=== PATIENT | female | born 1995 | race Caucasian/White ===

== ENCOUNTER 2019-01-15 07:22 | Inpatient (IN) | payer BC ==
[~2019-01-15 07:22] MED LIST: Buffered Lidocaine 1% SYRIN* 1 ML/SYRINGE INTRADERM ONE; Dexamethasone IV* 4 MG/ML 1 ML (4 MG) IV SLOW PU ONE; Famotidine IV* 10 MG/ML 2 ML (20 mg) IV ONE; Lactated Ringers 1000 ML Bag* 1,000 ML IV SCH
[2019-01-15] MEDS ORDERED: Heparin VIAL(*) 5000 UNITS/ML VIAL (FIVE THOUSAND) ONE (07:46)
[2019-01-15] MEDS ORDERED: Clindamycin 900 MG IVPREMIX(* 900 MG/50 ML SDV IV ONE (07:46)
[2019-01-15] MEDS ORDERED: Dexamethasone IV* 4 MG/ML 1 ML (4 MG) ONE (07:46)
[2019-01-15] MEDS ORDERED: Famotidine IV* 10 MG/ML 2 ML (20 mg) ONE (07:46)
[2019-01-15] MEDS ORDERED: fentaNYL* 50 MCG/ML 5 ML VIAL (250 MCG VIAL) ONE (08:17)
[2019-01-15] MEDS ORDERED: Midazolam* 1 MG/ML 5 ML VIAL (5 MG) ONE (08:17)
[2019-01-15] MEDS ORDERED: Ondansetron INJ* 2 MG/ML VIAL ONE (08:18)
[2019-01-15] MEDS ORDERED: Ketorolac INJ* 30 MG/ML 1 ML VIAL ONE (08:18)
[2019-01-15] MEDS ORDERED: Lidocaine 2% PF * 5 ML VIAL ONE (08:18)
[2019-01-15] MEDS ORDERED: Propofol* 10 MG/ML 20 ML BTL ONE (08:18)
[2019-01-15] MEDS ORDERED: Methylene Blue 0.5 %* 50 MG/10 ML AMP IV ONE (08:44)
[2019-01-15] MEDS ORDERED: Bupivacaine 0.25% SDV PF* 10 ML VIAL INJ ONE (08:45)
[2019-01-15] MEDS ORDERED: Bupivacaine 0.25% EPI 200,000* 30 ML SDV ONE ×2 (09:14→09:44)
[2019-01-15] MEDS ORDERED: Glycopyrrolate IV* 0.2 MG/ML 1 ML VIAL ONE (09:35)
[2019-01-15] MEDS ORDERED: fentaNYL* 50 MCG/ML 2 ML VIAL (100 MCG VIAL) ONE ×4 (09:45→14:00)
[2019-01-15] MEDS ORDERED: Rocuronium* 10 MG/ML VIAL ONE (09:49)
[2019-01-15] MEDS ORDERED: Metoprolol Tartrate IV* 1 MG/ML 5 ML VIAL ONE (10:00)
[2019-01-15] MEDS ORDERED: Naloxone* 0.4 MG/ML 1 ML VIAL IV PRN (10:34)
[2019-01-15] MEDS ORDERED: DiMENhydriNATE IV* 50 MG/ML VIAL IV PUSH PRN (10:34)
[2019-01-15] MEDS ORDERED: HYDROmorphone INJ1* 1 MG/ML SYRINGE IV PRN (10:34)
[2019-01-15] MEDS ORDERED: Scopolamine 1.5 mg* PATCH TRANSDERM PRN (10:34)
[2019-01-15] MEDS ORDERED: Ondansetron INJ* 2 MG/ML VIAL IV PRN ×2 (10:34→12:39)
[2019-01-15] MEDS ORDERED: Triamcinolone Acetonide* 40 MG/ML 1 ML VIAL ONE (11:18)
[2019-01-15] MEDS ORDERED: Oxymetazoline 0.05% NASAL SPR* 15 ML BTL ONE (11:18)
[2019-01-15] MEDS ORDERED: Lidocaine 2% W/EPI 1:100,000* 20 ML MDV ONE (11:18)
[2019-01-15] MEDS ORDERED: Gelfoam 12-7 ADSORBABL SPONGE* 1 EA SPONGE ONE (11:18)
[2019-01-15] MEDS ORDERED: Acetaminophen ADULT LIQ* 650 MG/20.3 ML UDC PO PRN (12:39)
[2019-01-15] MEDS ORDERED: HYDROmorphone INJ1* 1 MG/ML SYRINGE IV SLOW PU PRN (12:39)
--- NOTE | 2019-01-15 12:39 | OP ---
Operative Report - Blank - Operative Report Date of Operation: 01/15/19 Note: Brief Operative Note Preop Dx: morbid obesity Postop Dx: same Procedure: laparoscopic revision of prior sleeve gastrectomy to Jimbo en Y gastric bypass Anesthesia: GET Surgeon: Elma Carbon Accountant: PAUL Hurst; KEV Minor Fluids: 2500 ml RL EBL: < 50 ml Specimen: portion of stomach Drains: one LANDRY Findings: dictated
[2019-01-15] MEDS ORDERED: DiMENhydriNATE IV* 50 MG/ML VIAL ONE (12:43)
[2019-01-15] MEDS: fentaNYL* 50 MCG/ML 2 ML VIAL (100 MCG VIAL) IV PRN ×3 (12:45→14:01)
[2019-01-15] MEDS: Heparin VIAL(*) 5000 UNITS/ML VIAL (FIVE THOUSAND) SUBCUT SCH ×2 (15:20→22:17)
[2019-01-15] MEDS: Ketorolac INJ* 30 MG/ML 1 ML VIAL IV PRN ×2 (15:23→22:18)
[2019-01-15] MEDS: HYDROmorphone INJ1* 1 MG/ML SYRINGE IV SLOW PU PRN ×2 (16:26→22:22)
[2019-01-15] MEDS: Famotidine IV* 10 MG/ML 2 ML (20 mg) IV SLOW PU SCH (21:00)
[2019-01-15] MEDS: Lactated Ringers 1000 ML Bag* 1,000 ML IV SCH (21:02)
--- NOTE | 2019-01-15 21:08 | OP ---
CC: Primary Care Doctor; [facility] OPERATIVE REPORT: DATE OF OPERATION: 01/15/19 DATE OF : 89 SURGEON: Naldo Wills MD. WIRELESS INTERNET INSTALLER: PAUL Pablo. ANESTHESIOLOGIST: Dr. Munroe. ANESTHESIA: General. PRE-OP DIAGNOSIS: Clinically severe obesity. POST-OP DIAGNOSIS: Clinically severe obesity. OPERATIVE PROCEDURE: Laparoscopic revision of sleeve gastrectomy to Jimbo-en-Y gastric bypass. ESTIMATED BLOOD LOSS: Less than 50 cc. FLUIDS: 2500 cc of lactated Ringer's. SPECIMEN: Portion of stomach. DRAINS: #10 LANDRY drain left at the gastrojejunostomy. DESCRIPTION OF PROCEDURE: The patient was identified in the preoperative area, abdomen was marked, c onsent was signed. I discussed the case with her again. She was then brought to the operating room, placed on the operating table in the supine position. Preoperative antibiotics were given. Sequent ial devices were placed on the bilateral lower extremities. General anesthesia was induced. Wells c atheter was inserted and the patient's abdomen was prepped and draped in the standard surgical fashio n and a time-out was performed. Folds in the umbilicus were elevated anteriorly. A Veress needle was inserted into the abdominal cav ity, which was then allowed to insufflate to a pressure of 15 mmHg. The patient tolerated the insuff lation well. Penn between the xiphoid and the umbilicus, just left of midline, a 12-mm trocar was inserted using an Optiview trocar. Laparoscope was inserted through this. There was no evidence of injury from the trocar insertion or from the Veress needle, which was then removed. Review of the abdomen showed no unexpected findings. Additional 5-mm and 12-mm ports were placed at the left upper quadrant and the right upper quadrant. The table was then placed in the steep reverse Trendelenburg. A Laz retractor was inserted thr ough a subxiphoid incision and the lateral lobe of the liver was retracted anteriorly and to the righ t as best as possible. Immediately, we could see a portion of the sleeve stomach adhered to the unde rside of the liver. This was taken down with sharp dissection until we could see the lesser curvature of the stomach. We then repositioned the Laz retractor to where we could see the hiatus. Nex t, blunt dissection was carried out along the left crura until we could expose the site superiorly th at we would utilize to create our stomach pouch. There was a fair amount of sleeve stomach just later al to this. Next, a retrogastric tunnel was made at the mid portion of the stomach. We then fired a 60-mm purple VICENTE stapling device across this and it made it through the entire side of the sleeve stomach. There was a fair amount of stomach laterally at the proximal portion of the sleeve and the decision was ma de to transect this. This was done after placing a 34 Ukrainian OG tube by the anesthesiologist, and we placed additional dorothy over this using 60-mm purple VICENTE stapler firing followed by a 16-mm purple with reinforcement. The stomach pouch appeared appropriate size. It had some twisting due to the way it healed from the sleeve stomach. We took this down with blunt and sharp dissection, taking down the anterior fat to e xpose the anterior aspect of the stomach pouch. We then removed the lateral portion of the proximal stomach as this was not draining into the antrum of the stomach. We utilized LigaSure and took this off of the attachments to the omentum and also al lesia the spleen and the diaphragm. There was some bleeding in the diaphragm without full injury to th is. We controlled this with Surgicel and gauze, which was kept at this site while we did additional work. Next, we identified the ligament of Treitz and counted off 40 cm. We then brought this up in apposit ion to the stomach pouch and sutured it to the lateral stub of the staple edge with 2-0 silk sutures interrupted, taking care of its orientation. Next, a gastrotomy was made at 34 Ukrainian tubing. An enterotomy was made and the two were matted wit h a 30-mm stewart VICENTE stapling device. The common defect was reapproximated with 3-0 PDS suture. Prior to tieing this, we were able to insert the 34 Ukrainian Rivera tube into the Jimbo limb. Next, the omega loop of bowel was transected in the appropriate fashion with a 16- mm stewart VICENTE staplin g device. Next the gastrojejunostomy was tested with methylene blue dye test. It was within normal limits. Th e dye was then removed and we then turned our attention to the Jimbo limb. Approximately 90 cm was co unted off on the Jimbo limb. This was brought in position to the biliopancreatic limb, in which we th en made a jejunojejunostomy in a standard fashion taking care of the orientation of the mesentery. W e utilized a 16-mm stewart VICENTE stapling device and reapproximated the common defect with interrupted 2-0 silk sutures in a [id number]-[id number] fashion. Mesenteric defect was similarly closed. Review of the abdomen showed no bleeding. We then placed a #10 LANDRY drain and placed it up at the stom ach pouch. We removed the gauze at this site and left the Surgicel. There was no bleeding noted. H emostasis was excellent. We did use clips at the staple edge of both the stomach pouch and also the remaining antrum stomach for hemostasis at the staple line. Next, liver retractor was removed and then the specimen and its endoscopic retrieval bag was removed from the right upper quadrant port site dilating the incision first to take the portion of the stomac h out. Next, the abdomen was collapsed and trocars removed under direct vision and all skin incision s were reapproximated with 4-0 Monocryl subcuticular sutures with the exception of the LANDRY exit site, for which we utilized a 3-0 Prolene suture. Sterile dressing was applied. The patient tolerated the procedure well, was transferred to the PACU in stable condition. [id number]/[facility] #: [id number]
[2019-01-16] MEDS: Ketorolac INJ* 30 MG/ML 1 ML VIAL IV PRN ×2 (06:05→21:53)
[2019-01-16] MEDS: Heparin VIAL(*) 5000 UNITS/ML VIAL (FIVE THOUSAND) SUBCUT SCH ×3 (06:05→21:56)
[2019-01-16] MEDS: Lactated Ringers 1000 ML Bag* 1,000 ML IV SCH (06:06)
[2019-01-16] MEDS: Famotidine IV* 10 MG/ML 2 ML (20 mg) IV SLOW PU SCH ×2 (09:18→21:55)
[2019-01-16] MEDS: HYDROmorphone INJ1* 1 MG/ML SYRINGE IV SLOW PU PRN ×3 (09:18→17:46)
--- NOTE | 2019-01-16 11:05 | PN ---
Progress Note - Progress Note Date of Service: 01/16/19 Note: S: POD #1. Overall doing well. c/o some substernal discomfort, steady. No assoc N/V. Lai'd UGI contrast. Ambulating. Voiding w/o difficulty. O: Vital Signs - 8 hr 01/16/19 01/16/19 01/16/19 03:24 07:30 08:00 Temperature 98.6 F 98.5 F Pulse Rate 77 77 Respiratory 16 18 16 Rate Blood Pressure 139/77 125/66 (mmHg) O2 Sat by Pulse 98 99 Oximetry 01/16/19 01/16/19 09:18 10:16 Temperature Pulse Rate Respiratory 16 16 Rate Blood Pressure (mmHg) O2 Sat by Pulse Oximetry Intake and Output Last 24 Hours 01/14/19 01/15/19 01/16/19 01/17/19 06:59 06:59 06:59 06:59 Intake Total 5026 962 Output Total 1245 440 Balance 3781 522 Weight 251 lb 15.814 oz Intake: IV Fluids 5026 962 LR 5026 962 Oral 0 Output: LANDRY #1 145 40 Urine 1100 400 Other: # Bowel Movements 0 Gen: sitting up in chair; appears comfortable Heart: reg Lungs: clear Abd: lap sites ok; moderate light serosang drainage in LANDRY bulb as well as saturated dsg (nsg will change) UGI: TECHNIQUE: A single contrast fluoroscopic study was performed of the esophagus and upper GI tract. Water-soluble liquid contrast was administered under fluoroscopic observation. Multiple digital spot images were obtained Total fluoroscopy time is 0.5 minutes. FINDINGS: ESOPHAGUS: The esophagus is normal in contour, course, and caliber. There is no stricture or web. Contrast passes easily through the gastroesophageal junction into the stomach. There is normal esophageal motility. STOMACH: The patient is status post gastric bypass. On the initial fluoroscopic images, there is no passage of contrast distal to the GE junction. On 5 minute delayed images, contrast is noted within the small bowel without appreciable extravasation. DUODENUM: The patient is status post gastric bypass. SMALL BOWEL: The visualized small bowel is unremarkable.. IMPRESSION: THERE IS NO PASSAGE OF CONTRAST THROUGH THE GE JUNCTION ON INITIAL FLUOROSCOPIC IMAGES. PASSAGE INTO THE GASTRIC REMNANT AND GASTROJEJUNOSTOMY NOTED AFTER 5-7 MINUTES. THERE IS NO APPRECIABLE EXTRAVASATION. PRELIMINARY FINDINGS WERE DISCUSSED WITH DR. WILLS ON THE MORNING OF JANUARY 16, 2019. A: s/p lap conversion sleeve gastrectomy to gastric bypass; doing well P: discussed w/ Dr. Wills; will start guadalupe cleartamika; cont IVF, LANDRY drain for now
[2019-01-16] MEDS: D5W 1/2 NS KCl 20 Meq 1000 ML* 1,000 ML IV SCH ×2 (13:00→18:37)
[2019-01-16] MEDS: HYDROcodone/ACET. 7.5/325 LIQ* 15 ML UDC PO PRN (19:54)
[2019-01-17] MEDS: D5W 1/2 NS KCl 20 Meq 1000 ML* 1,000 ML IV SCH ×2 (02:20→10:07)
[2019-01-17] MEDS: Heparin VIAL(*) 5000 UNITS/ML VIAL (FIVE THOUSAND) SUBCUT SCH ×2 (06:17→14:05)
[2019-01-17] MEDS: HYDROcodone/ACET. 7.5/325 LIQ* 15 ML UDC PO PRN ×2 (06:50→12:53)
[2019-01-17 08:43] LABS: Hematocrit 37 % (35-47); Hemoglobin 12.2 g/dL (12.0-16.0)
[2019-01-17] MEDS: Famotidine IV* 10 MG/ML 2 ML (20 mg) IV SLOW PU SCH (10:07)
[2019-01-17 11:51] VITALS: BP 110/73
--- NOTE | 2019-01-17 23:26 | DS ---
CC: [facility]; Primary care doctor DISCHARGE SUMMARY: DATE OF ADMISSION: 01/15/19 DATE OF DISCHARGE: 01/17/19 HOSPITAL COURSE: Ms. Bruno is a 23-year-old female who underwent a sleeve gastrectomy with failure to lose significant amount of weight and was worked up as an outpatient and brought to the operating room on the same day of admission for a laparoscopic revision of sleeve gastrectomy with a gastric by pass. Please see operative report for full details. Briefly, the patient underwent the procedure, had a LANDRY drain placed and was transferred to the PACU a nd on to the short stay surgical unit. She was ambulatory on day 0 and remained on IV fluids. On postop day 1, the patient underwent an upper GI study. These images were reviewed as well as the report. She was started on oral intake and the patient was maintained on pain control. On postoperative day 2, the patient was examined. She was alert, oriented x3, in no apparent distres s. Head, ears, eyes, and throat: Normocephalic, atraumatic. Sclerae anicteric. Mucous membranes we re moist. Lungs: Clear. Abdomen: Soft, obese, tender. Skin incision was intact with Steri-Strips in place and no erythema. LANDRY drain with serosanguineous output was removed. Extremities were withi n normal limits, without calf tenderness. On postoperative day 2 plan for discharge home. Followup appointment next Sunday with me. The josselin ent will be discharged in stable condition to her home. Plan will be to resume her medication. 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 She understands she can contact the office at [facility] tamika joyce she have any concerns complaints or any acute changes. [id number]/[facility] #: [id number]
== END 2019-01-17 14:00 | disposition home or self-care (01) | DRG 403 ==
LOC: AA 07:22 → SSU 15:03
PROVIDERS: ADMIT Surgery; ATTEND Surgery
PROC: 0D1 Gastrointestinal System, Bypass (ICD-10-PCS; principal; 2019-01-15 09:15)
DX: E66.01 Morbid (severe) obesity due to excess calories (principal); I10 Essential (primary) hypertension; G43.909 Migraine, unspecified, not intractable, without status migrainosus; E28.2 Polycystic ovarian syndrome; F32.9 Major depressive disorder, single episode, unspecified; F41.9 Anxiety disorder, unspecified; Z68.41 Body mass index [BMI] 40.0-44.9, adult; Z90.3 Acquired absence of stomach [part of]; Z83.42 Family history of familial hypercholesterolemia; Z82.49 Family history of ischemic heart disease and other diseases of the circulatory system; Z81.8 Family history of other mental and behavioral disorders
CPT/HCPCS: 36415; 74246; 81025; 85014; 85018; 88307; A9270-GY; C1776; J1100; J1170; J1240; J1644; J1885; J2250; J2405; J2704; J3010; J3301; J3490